=== PATIENT | male | born 1995 | race Caucasian/White ===

== ENCOUNTER → 2020-08-10 10:58 | Outpatient (BNVA) | payer OTHER, SELFPAY | PROVIDERS: Visit Provider Nurse Practitioner Family | DX: Z11.59 Encounter for screening for other viral diseases (principal) | CPT/HCPCS: 87635 ==

== ENCOUNTER → 2021-03-03 08:31 | Outpatient (BNVA) | payer OTHER, SELFPAY | PROVIDERS: PCP Family Medicine Adult Medicine; Visit Provider Family Medicine Adult Medicine | DX: E04.9 Nontoxic goiter, unspecified (principal); I49.8 Other specified cardiac arrhythmias; R00.2 Palpitations; M79.602 Pain in left arm; Z68.23 Body mass index [BMI] 23.0-23.9, adult | CPT/HCPCS: 80053; 80061; 83036; 83735; 84443; 84484; 85025 ==

== ENCOUNTER 2022-04-30 12:14 | Emergency (ER) | payer BC, SELFPAY ==
[2022-04-30 12:44] VITALS: BP 150/79; PULSE 92; RESP 16; TEMP 36.7; O2SAT 97
--- NOTE | 2022-04-30 12:59 | ED_ITS ---
HPI - Extremity Injury (Lower) General: Chief Complaint: Extremity Injury, Lower Stated Complaint: Says he broke his left foot Time Seen by Provider: 04/30/22 13:06 Source: patient Mode of arrival: ambulatory Limitations: no limitations History of Present Illness: Patient is a 27-year-old male who presents to ED today for evaluation of a left foot injury. Patient tells me during a [employer] accident 5 days ago he rolled the foot while at work. Patient was subsequently seen at [facility] and had XRs of the foot performed. Results of the XR is as follows: XR/XR foot LT min 3V* [id number] IMPRESSION: 1. Comminuted spiral fracture of the fifth metatarsal with some displacement as detailed above. Soft tissue swelling. Patient states he was referred to Dr. Young, orthopedics but states for whatever reason [employer] has not approved this referral thus he has not seen anybody for the fracture. He was told by the initial treating provider that his fracture was emergent and required surgery thus they are here with worries regarding timely follow up. Patient has been in a posterior leg splint and non- weight bearing since accident. He is requesting a new splint as his current one seems uncomfortable. MD complaint: foot injury Onset (ago): day(s) Injury: Left: foot Place: work Relieving factors: immobilization Exacerbating factors: weight bearing, movement and palpation Associated symptoms: Reports no associated symptoms Other symptoms: none Review of Systems Card: Denies: chest pain Resp: Denies: dyspnea Musc: Reports: extremity pain (L foot) and extremity swelling (L foot); Denies: neck pain, back pain, joint pain or joint swelling Neuro: Denies: numbness in extremities, weakness in extremities or sensory changes [facility] ED PFSH: Medical History Acute hemorrhoid Asymptomatic PVCs History of fracture of rib IBS (irritable bowel syndrome) Intermittent palpitations Left arm pain Family History Father CHF (congestive heart failure) Atrial fibrillation Grandfather Stroke Social History Smoking and tobacco status: never smoked Alcohol intake: never Marital status: Number of children: 0 Current occupational status: employed Physical Exam Const: COMMON NORMALS: no acute distress, average body habitus, patient oriented x3, no limitations, healthy appearing, alert and well nourished Extremity: GENERAL: Yes normal exam except as noted LEFT LOWER EXTREMITY: Yes foot & digits OTHER: pt with dorsal foot ecchymosis; he has swelling/tenderness to lateral L foot; NV intact Neuro: COMMON NORMALS: patient oriented x3, moves all extremities, no focal motor deficits and no sensory deficits noted SENSORIUM/ORIENTATION: Yes alert Course Vital Signs: Vital signs: Vital Signs Temperature 98.1 F 04/30/22 12:44 Pulse Rate 92 04/30/22 12:44 Respiratory Rate 16 04/30/22 12:44 Blood Pressure 150/79 04/30/22 12:44 Pulse Oximetry 97 04/30/22 12:44 MDM - Extremity Injury (Lower) Medical Decision Making XRs reviewed. He has not had any new injury or trauma. I do not think we need to repeat these today. was contacted to help assist as this is a [employer] injury that has already been initiated by [employer] Villalobos and he has already been referred to Dr. Young. Our nurse case management contacted [employer] Villalobos they have yet to get an approval claim number from patient's employer[employer]. Dr. Young won't be back in for another 2 weeks so they were going to refer to our orthopedic clinic. Dr. Harris (per ) does not do Work[employer] injuries so referral was going to be to Dr. Musa. Lynette stated she will place the referral but clinic most likely will not see until they can get a claim number. 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 Recommend patient continue to ice/e levate and be non-weight bearing until seen by orthopedics. Splint was re- applied here. Extremity NV intact. Discharge Plan Discharge Patient Disposition: Home Clinical Impression: Displaced fracture of fifth metatarsal bone, left foot, sequela Condition: Stable Prescriptions: No Action cetirizine [Zyrtec] 10 mg tablet 10 mg PO DAILY [id number] Discharge Orders: Discharge ED (Routine); Ordered 04/30/22 Ordered By: Odalys Angel Referrals: Josafat Reed MD [Primary Care Provider] - Coding Level of Care Code ED Triage Register Nurse for Chg Fwd Exam Expanded Problem Focused
--- NOTE | 2022-04-30 14:40 | DCPLANNER ---
Addendum entered by Lynette Nugent 06/01/22 16:49: late entry - ortho clinic informed case worker that ortho called and left a vm with the agents. Unless we have written authorization we cannot see the patient or he will be responsible to pay for the visit. Pt needs to contact his employers as soon as possible. case worker is unable to speak with patient. Original Note: distribution manager was asked to schedule a follow up appointment for patient with ortho. distribution manager sent patients information to the front office staff at ortho. Patients informaiton will be printed and reviewed. Clinic will call patient with appointment information. distribution manager informed the ortho clinic that patient was seen at [facility], they have turned in all of the paperwork to workmans comp they have a claim #[id number] but do not have an authorization number yet. did give me the name of an wad compressor operator adjuster Ney Silverman [phone] or Bette [phone]. can not get a call back to get the authorization. I am really not for sure what I need to do, patient stated that no one from the company has contacted him, he does not have a nurse personal care aide at this time. Patient is supposed to call his boss and let him know that no one has called the clinic back with authorization for him to be seen.
[2022-04-30 14:48] VITALS: BP 108/64; PULSE 65; O2SAT 98
== END 2022-04-30 14:50 | disposition home or self-care (01) ==
PROVIDERS: Emergency Provider Physician Assistant; PCP Family Medicine Adult Medicine
DX: S92.352S Displaced fracture of fifth metatarsal bone, left foot, sequela (principal); X58.XXXS Exposure to other specified factors, sequela
CPT/HCPCS: 29515; 99283

== ENCOUNTER 2025-07-05 06:25 | Outpatient (CLI) | payer BC, SELFPAY ==
--- NOTE | 2025-07-05 06:33 | USCV_ITS ---
Rodney Bo Age: 30 Gender: M : 1995 Exam Date: 07/05/2025 06:47 Ordering Phys: Dieter Berman MD Technologist: MARY Exam Location: [facility] Indication: Palpitations, Syncope BP: 120 / 70 HR: 49 Rhythm: Sinus Technical Quality: Adequate MEASUREMENTS (Male / Female) Normal Values 2D ECHO LV Diastolic Diameter PLAX 5.0 cm 4.2 - 5.9 / 3.9 - 5.3 cm IVS Diastolic Thickness 0.8 cm 0.6 - 1.0 / 0.6 - 0.9 cm IVS Systolic Thickness 1.3 cm LVPW Diastolic Thickness 1.0 cm 0.6 - 1.0 / 0.6 - 0.9 cm LVPW Systolic Thickness 1.5 cm LVOT Diameter 2.0 cm LV Ejection Fraction 2D Teich 58.6 % LV Ejection Fraction MOD 4C 66.4 % LV Ejection Fraction MOD 2C 64.2 % LV Ejection Fraction 2C AL 64.1 % LA Diameter 3.6 cm RA Systolic Volume 4C AL 52.0 ml RA Systolic Volume 4C MOD 49.7 ml Aorta at Sinotubular Diameter 2.4 cm IVC Diameter 1.9 cm M-MODE LA Ao Ratio MM 1.4 AV Cusp Separation MM 1.9 cm DOPPLER AV Peak Velocity 148.0 cm/s LVOT Peak Velocity 109.0 cm/s AV Area Cont Eq vti 2.3 cm squared AV Area Cont Eq pk 2.3 cm squared MV Peak Velocity 115.0 cm/s MV Area PHT 5.4 cm squared Mitral E to A Ratio 1.4 TR Peak Velocity 234.0 cm/s TR Peak Gradient 21.9 mmHg TV Peak E Velocity 93.0 cm/s PV Peak Velocity 123.0 cm/s FINDINGS Left Ventricle Normal left ventricular size, systolic function and wall thickness, with no regional wall motion abnormalities. Left ventricular ejection fraction is estimated at 60 %. Normal diastolic function. Right Ventricle The right ventricle is normal in size and function. Right Atrium The right atrium is normal in size. Left Atrium The left atrium is normal in size. Mitral Valve Structurally normal mitral valve. No mitral valve stenosis. Trace mitral valve regurgitation. Aortic Valve Structurally normal trileaflet aortic valve. No aortic valve stenosis. Trace aortic valve regurgitation. Tricuspid Valve Structurally normal tricuspid valve. No tricuspid valve stenosis. Mild tricuspid valve regurgitation. Pulmonic Valve Structurally normal pulmonic valve without significant stenosis. There is no pulmonic regurgitation. Pericardium Normal pericardium without effusion. Aorta Normal ascending aorta dimension. IVC The inferior vena cava appears normal. CONCLUSIONS Normal left ventricular size, systolic function and wall thickness, with no regional wall motion abnormalities. Left ventricular ejection fraction is estimated at 60 %. Normal diastolic function. Structurally normal trileaflet aortic valve. No aortic valve stenosis. Trace aortic valve regurgitation. Structurally normal mitral valve. No mitral valve stenosis. Trace mitral valve regurgitation. Structurally normal tricuspid valve. No tricuspid valve stenosis. Mild tricuspid valve regurgitation. There is no pericardial effusion. Right atrial pressure is around 5 mm of mercury. Cosme Talbot MD (Electronically Signed) Final Date: 18 July 2025 16:48 S
== END 2025-07-05 06:26 | disposition home or self-care (01) ==
LOC: RAD 06:26
PROVIDERS: PCP Family Medicine; Visit Provider Internal Medicine Cardiovascular Disease
DX: R00.2 Palpitations (principal); R55 Syncope and collapse; I07.1 Rheumatic tricuspid insufficiency
CPT/HCPCS: 93306